=== PATIENT | male | born 1945 | race Caucasian/White ===

== ENCOUNTER → 2019-05-21 | Outpatient (CLI) | payer MEDICARE, OTHER ==
[~2019-05-21] MED LIST: CEPH-507 PO; CLOP75TA28 PO; CLOT15CR4 TP; FENO130C5 PO; FENO48TA16 PO; OMEP10SU2 PO; RAMI5CAP65 PO; ROSU20TA2 PO
--- NOTE | 2019-05-21 14:04 | Diagnostic Imaging Report ---
PROCEDURE: US Renal Bilateral. TECHNIQUE: Multiple real-time grayscale images were obtained over the kidneys in various projections bilaterally. INDICATION: Right renal mass. There are no prior studies available for comparison. Reportedly, there is clinical concern regarding a renal mass on the right. If there are prior exams they would be helpful for comparison. Both kidneys were identified. The right kidney measures 10.5 x 5.2 x 6.7 cm while the left kidney measures 11.5 x 6.0 x 4.6 cm. Along the lateral aspect of the right kidney there is a well-circumscribed 5.6 x 3.7 x 4.3 cm avascular anechoic area. This does suggest a benign renal cyst. There is no evidence for a solid mass involving the right kidney. There are also several hypoechoic areas arising from the left kidney. The largest of these is along the inferior pole and measures 3.0 x 2.8 x 2.5 cm. There is also a 2.0 x 1.7 x 1.5 cm hypoechoic area in the midportion of the kidney and a 1.0 x 0.9 x 0.5 cm hypoechoic area in the superior pole. These are felt to represent cysts as well. There is no solid mass involving the left kidney. There does seem to mild dilatation of the left renal pelvis. There is no sign of obstructive calculus. There is no evidence for hydronephrosis on the right. The renal cortices are normal in thickness and echogenicity. The bladder was imaged during the course of the exam. The bladder is only partially filled and consequently not well evaluated. There is no obvious bladder abnormality. Both ureteral jets were noted. The prostate gland was identified. The gland is enlarged measuring 4.6 x 5.6 cm. IMPRESSION: 1. There are cysts associated with both kidneys including a 5.6 x 3.7 x 4.3 cm cyst arising from the lateral aspect of the right kidney. The cysts have a generally benign appearance. There is no evidence for a solid renal mass. However, if there are previous exams available for comparison they would be helpful. 3. There is mild dilatation of the left renal pelvis but there is no sign of an obstructive calculus. 4. There is no obvious bladder abnormality evident. 5 The prostate gland is enlarged. Dictated by: Dictated on workstation # [id number]
== END ==
LOC: RAD 10:10
PROVIDERS: ATTEND Urology
DX: N28.1 Cyst of kidney, acquired (principal); N40.1 Benign prostatic hyperplasia with lower urinary tract symptoms
CPT/HCPCS: 76770

== ENCOUNTER → 2019-05-22 | Outpatient (CLI) | payer MEDICARE, OTHER ==
[2019-05-22 11:44] LABS: CREATININE SERUM 1.61 MG/DL (0.60-1.30)
--- NOTE | 2019-05-22 19:49 | Diagnostic Imaging Report ---
PROCEDURE: CT abdomen and pelvis without contrast. TECHNIQUE: Multiple contiguous axial images were obtained through the abdomen and pelvis without the use of intravenous contrast. Auto Exposure Controls were utilized during the CT exam to meet ALARA standards for radiation dose reduction. DATE: May 22, 2019. COMPARISON: Renal ultrasound, May 21, 2019. INDICATION: 73-year-old male, right renal mass, left flank pain. FINDINGS: There are limitations for evaluation of the abdominal organs, neoplastic processes, abscess, and limited evaluation of the vasculature relating to the lack of intravenous contrast. The visualized portions of the lung bases are clear. The heart is not enlarged. There is no pericardial effusion. There are coronary artery calcifications and additional areas of atherosclerotic disease. The liver is normal in size and contour. There is cholelithiasis without evidence of acute cholecystitis. There is no biliary ductal dilation. The main pancreatic duct is not abnormally dilated. Unremarkable noncontrast appearance of the pancreatic parenchyma. The spleen is normal in size. The adrenal glands are unremarkable. There is a low-attenuation left renal lesion on axial image 55 arising from the inferior pole, measuring 3.0 cm in size with internal attenuation of 10 Hounsfield units consistent with a benign left renal cyst. There is a low-attenuation left renal lesion, measuring 14 mm in size on axial image 45 with internal attenuation of 2 Hounsfield units, consistent with a benign cyst. On the same image, there is a 3 mm low-attenuation left renal lesion too small to characterize. In the right kidney on axial image 40 anteriorly, there is a 10 mm low-attenuation lesion, measuring 5 Hounsfield units in attenuation consistent with a benign cyst. There is an exophytic higher attenuation right renal lesion on axial image 42, measuring 4.7 x 4.0 cm in axial dimension with internal attenuation measuring 34 Hounsfield units. This is present on prior ultrasound and has appearance consistent with a benign right renal cyst on ultrasound. This most likely relates to a hemorrhagic or proteinaceous containing cyst given the high attenuation on CT. The urinary collecting systems are not distended. There is no identified renal or ureteral stone. The prostate gland is prominent size. Unremarkable appearance of the urinary bladder. There is diverticulosis without evidence of acute diverticulitis. The intestinal tract is not distended. There is no free intraperitoneal air. There is no drainable fluid collection. There is no free pelvic fluid. There are atherosclerotic calcifications. There is no identified abnormally enlarged lymph node in the abdomen or pelvis which meets CT size criteria for adenopathy. There are degenerative changes of the spine. There is no identified acute bony abnormality. IMPRESSION: CT abdomen and pelvis: 1. Right renal lesion is consistent with a benign right renal cyst correlating with ultrasound of May 21, 2019. Internal high attenuation on today's CT likely reflects a hemorrhagic or proteinaceous containing cyst. 2. Additional smaller benign right and left renal cysts. 3. Cholelithiasis without evidence of acute cholecystitis. 4. Diverticulosis without evidence of acute diverticulitis. Dictated by: Dictated on workstation # [id number]
== END ==
LOC: RAD 11:15
PROVIDERS: ATTEND Urology
DX: K80.20 Calculus of gallbladder without cholecystitis without obstruction (principal); K57.30 Diverticulosis of large intestine without perforation or abscess without bleeding; N28.1 Cyst of kidney, acquired
CPT/HCPCS: 36415; 74176; 82565; 84520